=== PATIENT | female | born 1990 | race Caucasian/White ===

== ENCOUNTER 2016-11-24 21:32 | Emergency (ER) | payer SELFPAY ==
[~2016-11-24 21:32] MED LIST: IBUP-1542 PO; NITR-58 PO; PREN1TAB49 PO; SODI75SP NASAL
== END 2016-11-24 22:15 | disposition left against medical advice (07) ==
LOC: E/R 21:32
DX: Z53.21 Procedure and treatment not carried out due to patient leaving prior to being seen by health care provider (principal)